=== PATIENT | female | born 1985 | race African-American/Black ===

== ENCOUNTER 2016-02-14 21:48 | Inpatient (IN) | payer BC, MEDICAID ==
[~2016-02-14] VITALS: Ht 160 cm; Wt 67.7 kg
[2016-02-15] MEDS ORDERED: MOM 30ML SUSPENSION UDC PO PRN (01:30)
[2016-02-15] MEDS ORDERED: MAALOX 30 ML SUSP *UDC PO PRN (01:30)
[2016-02-15] MEDS ORDERED: ACETAMINOPHEN TAB 650MG DOSE (2X325MG) PO PRN (01:30)
[2016-02-15] MEDS ORDERED: HALOPERIDOL 5 MG TAB PO PRN (01:30)
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
--- NOTE | 2016-02-15 02:40 | EDDOCDS ---
Physician Documentation [facility] Name: Hiren Cerda Age: 31 yrs Sex: Female : 1985 Arrival Date: 02/14/2016 Time: 21:48 Bed U5 Private MD: No Pcp Disposition: 02/14 01:16 Critical Care: Critical care not applicable. pc Disposition: 02/15/16 01:17 Hospitalization ordered by Michael Moseley for Inpatient Admission. Preliminary diagnosis are Cocaine abuse with cocaine-induced psychotic disorder, Alcohol abuse with alcohol-induced psychotic disorder. - Bed requested for Admit. - Status is Inpatient Admission. ka4 - Condition is Stable. - Problem is new. - Symptoms have improved. HPI: 02/13 22:04 This 31 yrs old Female presents to ER with complaints of Mental Health pc Eval. 22:04 The history is obtained from the patient, EMS providers, transfer records. The patient pc presents to the emergency department with suicidal ideation, depression, agitated. She presented to [facility] and was threatening suicide, was agitated and required chemical restraints. She was positive for cocaine on her drug screen but the rest of her investigations were unremarkable. She was transferred here for [facility] admission. Historical: - Allergies: no known allergies; - Home Meds: 1. none - PMHx: Depression; - PSHx: none; - The history from nurses notes was reviewed: but there are no nursing notes, or only partial notes available at the time of my charting. - Social history: Smoking status: Patient states was never smoker of tobacco. No barriers to communication noted, The patient speaks fluent Faroese. - : The pt / caregiver states he / she is not on anticoagulants. Home medication list is obtained from the patient, Unable to Verify Home Med List with the patient / caregiver. - Immunization history:: All immunizations up-to-date. - Exposure Risk Screening:: None identified. - Family history: Not pertinent. - Social history:: the patient smokes cigarettes the patient drinks alcohol, the patient uses illicit drugs, including cocaine. LEAF SORTER: 22:10 LMP 01/17/2016Feb ROS: 22:08 All systems are negative except as listed. The psychiatric and neurological components pc are also addressed in the HPI. Exam: 22:08 General Appearance: alert, anxious. pc 22:08 ENT: ear, nose and throat normal, pharynx normal. 22:08 Eyes: pupils equal, round and reactive to light, extraocular motions intact. 22:08 Neck: The exam reveals no acute abnormalities. ROM is normal and painless. No nuchal rigidity is noted.. 22:08 Respiratory: breathing is even and unlabored, breath sounds are normal. 22:08 Cardiovascular: regular pulse rate, regular heart rhythm, normal heart sounds, equal and full pulses bilaterally. 22:08 Abdomen: soft, non-tender, no organomegaly, normal bowel sounds. 22:08 Skin: skin color is normal, warm, dry. 22:08 Extremities: The extremities have a grossly normal appearance, are non-tender, without acute ROM abnormalities. 22:08 Neuro: alert, oriented to person, place and time, cranial nerves normal as tested, no motor deficits, no sensory deficits. 22:08 Psych: mood is depressed, suicidal, affect is animated. Vital Signs: 21:51 Weight 72 kg / 158.73 lbs; Height 63 in. (160.02 cm); ka4 22:07 BP 142 / 92; Pulse 96; Resp 18; Temp 99.0(T); Pulse Ox 97% on R/A; m 02/14 02:05 BP 135 / 65; Pulse 83 MON; Resp 18 S; Temp 97.8(T); Pulse Ox 95% ; Pain 0/10; ka4 02/13 21:51 Body Mass Index 28.12 (72.00 kg, 160.02 cm) ka4 MDM: 02/13 22:08 Differential diagnosis: depression, suicidal ideation, Substance Abuse. Plan: PFS eval. pc 22:32 Financial registration complete. zo 22:32 [facility] Payment Agreement was scanned into Log[employer] and attached to record. zo 02/14 01:16 The patient has been medically cleared for psychiatric evaluation, admission and/or pc transfer. [place] Safe Act reporting: Reporting to the [place] Safe Act was not completed because the patient did not display any suicidal or homicidal ideation and was not considered a risk to self or others. Data reviewed: old medical records, vital signs, nurses notes. Data reviewed: All records pertaining to the patient's transfer have been reviewed. Test interpretation: none. The patient has been re-examined and re-evaluated. The clinical presentation did not require any ED treatment or interventions. Disposition: The historical points, examination findings, and any diagnostic results supporting the provided diagnosis, were discussed with the patient or legal guardian. The need for further work-up and/or treatment in the hospital was explained. 01:22 Admit to IM: ordered. EDMS 01:22 REGULAR DIET ordered. EDMS 02:00 [facility] Legal paperwork was scanned into Loggly and attached to record. jroge Signatures: Dispatcher [employer] EDOK Jones Costello MD MD pc Newman, Jill New, RN RN jan LaFontaine, Jon, PSA PSA jl Olin, Zoeann zo Anderson, Kodie, LPN AVIONICS TEST TECHNICIAN ka4 The chart was reviewed and I authenticate all verbal orders and agree with the evaluation and treatment provided.Corrections: (The following items were deleted from the chart) 02/13 22:07 22:04 She presented to [facility] and was threatening suicide, was agitated and pc required chemical restraints. She was transferred here for Pysch admission pc 22: 22:04 She presented to [facility] and was threatening suicide, was agitated and pc required chemical restraints. She was positive for cocaine on her drug screen but the rest of her investigations were unrematrkable. She was transferred here for Pysch admission pc Attachments: 22:32 [facility] Payment Agreement zo MTDD
[2016-02-15 02:44] VITALS: BP 134/76
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
[2016-02-15 18:00] VITALS: BP 123/58
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
[2016-02-16 06:24] VITALS: BP 119/60
[2016-02-16] MEDS: CitaloPRAM (CeleXA) 20 MG TAB PO SCH (09:00)
[2016-02-16 18:00] VITALS: BP 132/78
--- NOTE | 2016-02-16 19:56 | IPNPDOC ---
[facility] Progress Note Progress Note DATE: 02/16/16 HISTORY: Patient is observed up and out of bed in room preparing to shower, is cooperative and easily engaged. Patient reports intermittent symptoms of anxiety , 5/10 depression, was Seven and homicidal ideation, denies audiovisual hallucinations, and denies urge to engage in self-injurious behavior. Patient indicates she is attending groups finding them helpful in terms of developing coping mechanisms, notes she has been utilizing prayer to help her cope with her concerns about her children and her relationship. Patient notes "I broke, and I know I need help." Patient has restarted Celexa and reiterates she has taken medication in past with good effect and no medication side effects. Patient indicates she slept well last night and denies nightmares, indicates her appetite is improving, and denies challenges with energy or concentration levels. Patient denies physical pain and indicates she feels safe on unit. VITAL SIGNS: See below. NEW TEST RESULTS: No new lab results. Lab results on admission indicate WBC 9.7 , Hgb 11.6, Hct 34.7, Plt 4334, Gluc 142, Bun 9, SCr 0.80, Na 135, K 3.9, Cl 96 , Ca 9.7, AST 39, ALT 22. RPR non reactive. TSH 5.120. Patient is asymptomatic, PA is monitoring. EKG on 02/14/16 was normal and hCG was negative on admission. CURRENT MEDICATIONS: See below. MENTAL STATUS EXAMINATION: Patient is a 31-year old female, who presents with somewhat improved personal hygiene, dressed in hospital clothing, is cooperative and less evasive, makes improved eye contact, appears stated age Behavior: No psychomotor agitation Attitude: Cooperative, calm Speech: Spontaneous, normal quantity, normal rate, normal volume Thought Content: Denies suicidal/homicidal ideation. Denies auditory/visual hallucination. Does not appear to be responding to internal stimuli. Does not appear internally preoccupied. Thought Process: Generally logical, linear, goal-oriented Mood: "I'm sad about what happened and hope it won't impact my kids." Affect: Sat, tense, brightens X 2 Cognition: Grossly intact Orientation: Awake, alert, oriented times three Insight and Judgement: Poor DIAGNOSES: Unspecified mood disorder, alcohol use disorder, cocaine use disorder ASSESSMENT: Patient appears to be adjusting to unit, has been visible in milieu and is attending groups slices minimally. Patient indicates she has begun taking Celexa she is taken in the past with good effect reported, states she remains concerned that the impact of events leading up to hospitalization on her children. Patient indicates her boyfriend visited last night and she indicates she has no safety concerns for herself or her children who remain in the care of patient's mother. Patient is brighter today, more easily engaged, indicates she is feeling somewhat more hopeful about future, denies all suicidal and homicidal ideation. Patient informs radio news writer she believes she would like to discharge to home to be with children and return to [facility] for outpatient substance abuse treatment, psychotherapy, and medication management services upon discharge. Patient adds at discharge her boyfriend has agreed to stay with his mother until she and her boyfriend can address relationship challenges. Patient is able to effectively engage in the safety planning process and verbalizes awareness of how to access supportive services on the unit if needed she was encouraged to participate in unit programming. Will continue to monitor patient's response to Celexa 20 mg by mouth every morning. MANAGEMENT PLAN: Continue Celexa 20 mg by mouth every morning. Patient is aware she has trazodone available to her as needed for sleep. Maintain safety precautions Patient to attend groups and participate in unit programming to develop coping strategies Engage patient in discharge planning process and arrange meeting with support system to evaluate safe discharge planning when appropriate Patient to follow up with PCM upon discharge Vital Signs Vital Sign - Last 24 Hours 02/16/16 02/16/16 06:24 18:00 Temp 99.3 97.6 Pulse 92 86 Resp 16 16 B/P 119/60 132/78 O2 Delivery Room Air Current Medications Current Medications Acetaminophen (Tylenol) 650 mg Q6HP PRN PO HEADACHE or DISCOMFORT; Start at 01:30; Stop 03/16/16 at 01:29 Al Hydrox/Mg Hydrox/Simethicone (Mylanta) 30 ml Q4HP PRN PO HEARTBURN/ INDIGESTION; Start 02/15/16 at 01:30; Stop 03/16/16 at 01:29 Citalopram Hydrobromide (CeleXA) 20 mg QAM PO Last administered on 02/16/16t 09: 00; Start 02/16/16 at 09:00; Stop 03/17/16 at 08:59 Haloperidol (Haldol) 5 mg Q6HP PRN PO ANXIETY/AGITATION; Start 02/15/16 at 01:30 ; Stop 03/16/16 at 01:29 Home Med (Med Rec Complete!) ASDIRECTED XX ; Start 02/15/16 at 01:45; Stop at 02:55; Status DC Lorazepam (Ativan) 1 mg Q6HP PRN PO ANXIETY/AGITATION; Start 02/15/16 at 01:30; Stop 02/22/16 at 01:29 Magnesium Hydroxide (Milk Of Magnesia) 30 ml DAILYPRN PRN PO CONSTIPATION; Start 02/15/16 at 01:30; Stop 03/16/16 at 01:29 Trazodone HCl (Desyrel) 50 mg QHSP PRN PO INSOMNIA; Start 02/15/16 at 01:30; Stop 03/16/16 at 01:29 Allergies Coded Allergies: No Known Drug Allergy (Unverified Allergy, Unknown, 02/15/16) Nereida Gusman Feb 16, 2016 19:56
[2016-02-16] MEDS: LORazepam 1 MG TAB PO PRN (19:57)
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
--- NOTE | 2016-02-17 03:40 | EDDOCDS ---
Physician Documentation [facility] Name: Hiren Cerda Age: 31 yrs Sex: Female : 1985 Arrival Date: 02/14/2016 Time: 21:48 Bed U5 Private MD: No Pcp Disposition: 02/14 01:16 Critical Care: Critical care not applicable. pc Disposition: 02/15/16 01:17 Hospitalization ordered by Michael Moseley for Inpatient Admission. Preliminary diagnosis are Cocaine abuse with cocaine-induced psychotic disorder, Alcohol abuse with alcohol-induced psychotic disorder. - Bed requested for Admit. - Status is Inpatient Admission. ka4 - Condition is Stable. - Problem is new. - Symptoms have improved. HPI: 02/13 22:04 This 31 yrs old Female presents to ER with complaints of Mental Health pc Eval. 22:04 The history is obtained from the patient, EMS providers, transfer records. The patient pc presents to the emergency department with suicidal ideation, depression, agitated. She presented to [facility] and was threatening suicide, was agitated and required chemical restraints. She was positive for cocaine on her drug screen but the rest of her investigations were unremarkable. She was transferred here for [facility] admission. Historical: - Allergies: no known allergies; - Home Meds: 1. none - PMHx: Depression; - PSHx: none; - The history from nurses notes was reviewed: but there are no nursing notes, or only partial notes available at the time of my charting. - Social history: Smoking status: Patient states was never smoker of tobacco. No barriers to communication noted, The patient speaks fluent Gambian. - : The pt / caregiver states he / she is not on anticoagulants. Home medication list is obtained from the patient, Unable to Verify Home Med List with the patient / caregiver. - Immunization history:: All immunizations up-to-date. - Exposure Risk Screening:: None identified. - Family history: Not pertinent. - Social history:: the patient smokes cigarettes the patient drinks alcohol, the patient uses illicit drugs, including cocaine. MANAGER MANAGEMENT: 22:10 LMP 01/17/2016Feb ROS: 22:08 All systems are negative except as listed. The psychiatric and neurological components pc are also addressed in the HPI. Exam: 22:08 General Appearance: alert, anxious. pc 22:08 ENT: ear, nose and throat normal, pharynx normal. 22:08 Eyes: pupils equal, round and reactive to light, extraocular motions intact. 22:08 Neck: The exam reveals no acute abnormalities. ROM is normal and painless. No nuchal rigidity is noted.. 22:08 Respiratory: breathing is even and unlabored, breath sounds are normal. 22:08 Cardiovascular: regular pulse rate, regular heart rhythm, normal heart sounds, equal and full pulses bilaterally. 22:08 Abdomen: soft, non-tender, no organomegaly, normal bowel sounds. 22:08 Skin: skin color is normal, warm, dry. 22:08 Extremities: The extremities have a grossly normal appearance, are non-tender, without acute ROM abnormalities. 22:08 Neuro: alert, oriented to person, place and time, cranial nerves normal as tested, no motor deficits, no sensory deficits. 22:08 Psych: mood is depressed, suicidal, affect is animated. Vital Signs: 21:51 Weight 72 kg / 158.73 lbs; Height 63 in. (160.02 cm); ka4 22:07 BP 142 / 92; Pulse 96; Resp 18; Temp 99.0(T); Pulse Ox 97% on R/A; m 02/14 02:05 BP 135 / 65; Pulse 83 MON; Resp 18 S; Temp 97.8(T); Pulse Ox 95% ; Pain 0/10; ka4 02/13 21:51 Body Mass Index 28.12 (72.00 kg, 160.02 cm) ka4 MDM: 02/13 22:08 Differential diagnosis: depression, suicidal ideation, Substance Abuse. Plan: PFS eval. pc 22:32 Financial registration complete. zo 22:32 [facility] Payment Agreement was scanned into [employer] and attached to record. zo 02/14 01:16 The patient has been medically cleared for psychiatric evaluation, admission and/or pc transfer. [place] Safe Act reporting: Reporting to the [place] Safe Act was not completed because the patient did not display any suicidal or homicidal ideation and was not considered a risk to self or others. Data reviewed: old medical records, vital signs, nurses notes. Data reviewed: All records pertaining to the patient's transfer have been reviewed. Test interpretation: none. The patient has been re-examined and re-evaluated. The clinical presentation did not require any ED treatment or interventions. Disposition: The historical points, examination findings, and any diagnostic results supporting the provided diagnosis, were discussed with the patient or legal guardian. The need for further work-up and/or treatment in the hospital was explained. 01:22 Admit to IM: ordered. EDMS 01:22 REGULAR DIET ordered. EDMS 02:00 [facility] Legal paperwork was scanned into [employer] and attached to record. jl 09:10 PCR was scanned into [employer] and attached to record. gb Signatures: Dispatcher [employer] EDNJ Jones Costello MD MD pc Newman, Jill New, RN RN Kahlil Loo, PSA PSA jl Stefania Stovall, Reg Reg gb Rufino, Joceline Smart,PRINTED CIRCUIT BOARDS SOLDER LEVELER PRINTED CIRCUIT BOARDS SOLDER LEVELER ka4 The chart was reviewed and I authenticate all verbal orders and agree with the evaluation and treatment provided.Corrections: (The following items were deleted from the chart) 02/13 22:07 22:04 She presented to [facility] and was threatening suicide, was agitated and pc required chemical restraints. She was transferred here for Pysch admission pc 22: 22:04 She presented to [facility] and was threatening suicide, was agitated and pc required chemical restraints. She was positive for cocaine on her drug screen but the rest of her investigations were unrematrkable. She was transferred here for Pysch admission pc Attachments: 22:32 [facility] Payment Agreement zo Chart Complete MTDD
--- NOTE | 2016-02-17 03:40 | EDDOCDS ---
Physician Documentation [facility] Name: Hiren Cerda Age: 31 yrs Sex: Female : 1985 Arrival Date: 02/14/2016 Time: 21:48 Bed U5 Private MD: No Pcp Disposition: 02/14 01:16 Critical Care: Critical care not applicable. pc Disposition: 02/15/16 01:17 Hospitalization ordered by Michael Moseley for Inpatient Admission. Preliminary diagnosis are Cocaine abuse with cocaine-induced psychotic disorder, Alcohol abuse with alcohol-induced psychotic disorder. - Bed requested for Admit. - Status is Inpatient Admission. ka4 - Condition is Stable. - Problem is new. - Symptoms have improved. HPI: 02/13 22:04 This 31 yrs old Female presents to ER with complaints of Mental Health pc Eval. 22:04 The history is obtained from the patient, EMS providers, transfer records. The patient pc presents to the emergency department with suicidal ideation, depression, agitated. She presented to [facility] and was threatening suicide, was agitated and required chemical restraints. She was positive for cocaine on her drug screen but the rest of her investigations were unremarkable. She was transferred here for [facility] admission. Historical: - Allergies: no known allergies; - Home Meds: 1. none - PMHx: Depression; - PSHx: none; - The history from nurses notes was reviewed: but there are no nursing notes, or only partial notes available at the time of my charting. - Social history: Smoking status: Patient states was never smoker of tobacco. No barriers to communication noted, The patient speaks fluent [place]. - : The pt / caregiver states he / she is not on anticoagulants. Home medication list is obtained from the patient, Unable to Verify Home Med List with the patient / caregiver. - Immunization history:: All immunizations up-to-date. - Exposure Risk Screening:: None identified. - Family history: Not pertinent. - Social history:: the patient smokes cigarettes the patient drinks alcohol, the patient uses illicit drugs, including cocaine. RACING SECRETARY: 22:10 LMP 01/17/2016Feb ROS: 22:08 All systems are negative except as listed. The psychiatric and neurological components pc are also addressed in the HPI. Exam: 22:08 General Appearance: alert, anxious. pc 22:08 ENT: ear, nose and throat normal, pharynx normal. 22:08 Eyes: pupils equal, round and reactive to light, extraocular motions intact. 22:08 Neck: The exam reveals no acute abnormalities. ROM is normal and painless. No nuchal rigidity is noted.. 22:08 Respiratory: breathing is even and unlabored, breath sounds are normal. 22:08 Cardiovascular: regular pulse rate, regular heart rhythm, normal heart sounds, equal and full pulses bilaterally. 22:08 Abdomen: soft, non-tender, no organomegaly, normal bowel sounds. 22:08 Skin: skin color is normal, warm, dry. 22:08 Extremities: The extremities have a grossly normal appearance, are non-tender, without acute ROM abnormalities. 22:08 Neuro: alert, oriented to person, place and time, cranial nerves normal as tested, no motor deficits, no sensory deficits. 22:08 Psych: mood is depressed, suicidal, affect is animated. Vital Signs: 21:51 Weight 72 kg / 158.73 lbs; Height 63 in. (160.02 cm); ka4 22:07 BP 142 / 92; Pulse 96; Resp 18; Temp 99.0(T); Pulse Ox 97% on R/A; m 02/14 02:05 BP 135 / 65; Pulse 83 MON; Resp 18 S; Temp 97.8(T); Pulse Ox 95% ; Pain 0/10; ka4 02/13 21:51 Body Mass Index 28.12 (72.00 kg, 160.02 cm) ka4 MDM: 02/13 22:08 Differential diagnosis: depression, suicidal ideation, Substance Abuse. Plan: PFS eval. pc 22:32 Financial registration complete. zo 22:32 [facility] Payment Agreement was scanned into test company and attached to record. zo 02/14 01:16 The patient has been medically cleared for psychiatric evaluation, admission and/or pc transfer. [place]: Reporting to the [place] was not completed because the patient did not display any suicidal or homicidal ideation and was not considered a risk to self or others. Data reviewed: old medical records, vital signs, nurses notes. Data reviewed: All records pertaining to the patient's transfer have been reviewed. Test interpretation: none. The patient has been re-examined and re-evaluated. The clinical presentation did not require any ED treatment or interventions. Disposition: The historical points, examination findings, and any diagnostic results supporting the provided diagnosis, were discussed with the patient or legal guardian. The need for further work-up and/or treatment in the hospital was explained. 01:22 Admit to IM: ordered. EDMS 01:22 REGULAR DIET ordered. EDMS 02:00 [facility] Legal paperwork was scanned into test company and attached to record. jl 09:10 PCR was scanned into [employer] and attached to record. gb Signatures: Dispatcher [employer] EDNC Jones Costello MD MD pc Newman, Jill New, RN RN Kahlil Loo, PSA PSA jl Stefania Stovall, Reg Reg gb Rufino, Joceline Smart,BODY SERVICE TEAM MEMBER BODY SERVICE TEAM MEMBER ka4 The chart was reviewed and I authenticate all verbal orders and agree with the evaluation and treatment provided.Corrections: (The following items were deleted from the chart) 02/13 22:07 22:04 She presented to [facility] and was threatening suicide, was agitated and pc required chemical restraints. She was transferred here for Pysch admission pc 22: 22:04 She presented to [facility] and was threatening suicide, was agitated and pc required chemical restraints. She was positive for cocaine on her drug screen but the rest of her investigations were unrematrkable. She was transferred here for Pysch admission pc Attachments: 22:32 [facility] Payment Agreement zo Chart Complete MTDD
[2016-02-17 06:27] VITALS: BP 123/59
[2016-02-17 06:28] VITALS: BP 123/59
[2016-02-17] MEDS: CitaloPRAM (CeleXA) 20 MG TAB PO SCH (08:10)
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
[2016-02-17 18:00] VITALS: BP 140/92
[2016-02-18] MEDS: LORazepam 1 MG TAB PO PRN (03:17)
[2016-02-18 06:00] VITALS: BP 121/69
[2016-02-18] MEDS: CitaloPRAM (CeleXA) 20 MG TAB PO SCH (08:09)
[2016-02-18 12:27] LABS: BASO % 0.5 % (0.0-1.0); EOS # 0.1 K/mm3 (0.0-0.50); EOS % 1.7 % (0.0-3.0); LARGE UNSTAINED CELL # 0.2 K/mm3 (0.0-0.4); LARGE UNSTAINED CELL % 2.7 % (0.0-4.0); LYMPH # 1.8 K/mm3 (1.5-4.5); LYMPH % 21.2 % (24.0-44.0); MEAN CORPUSCULAR HEMOGLOBIN 25.4 pg (27.0-33.0); MEAN CORPUSCULAR VOLUME 79.4 fl (80.0-96.0); MONO # 0.6 K/mm3 (0.0-0.8); MONO % 6.9 % (0.0-5.0); NEUTROPHILS # 5.6 K/mm3 (1.8-7.7); NEUTROPHILS % 66.9 % (36.0-66.0); PLATELET COUNT, AUTOMATED 457 k/mm3 (150-450); RED CELL DISTRIBUTION WIDTH 14.6 % (11.5-14.5); WHITE BLOOD COUNT 8.4 K/mm3 (4.0-10.0)
[2016-02-18 12:28] LABS: ANION GAP 10 MEQ/L (8-16); BLOOD UREA NITROGEN 10 MG/DL (7-18); CALCIUM LEVEL 9.2 MG/DL (8.5-10.1); CARBON DIOXIDE LEVEL 26 MEQ/L (21-32); CHLORIDE LEVEL 102 MEQ/L (98-107); CREATININE FOR GFR 0.87 MG/DL (0.55-1.02); GLOMERULAR FILTRATION RATE > 60.0 (>60); GLUCOSE, FASTING 97 MG/DL (70-105); POTASSIUM SERUM 4.4 MEQ/L (3.5-5.1); SODIUM LEVEL 138 MEQ/L (136-145)
[2016-02-18] MEDS ORDERED: hydrOXYzine 50 MG TAB PO PRN (13:00)
--- NOTE | 2016-02-18 13:15 | IPNPDOC ---
Assessment/Plan Date Seen The patient was seen on 02/18/16. Problems Problems: (1) Diarrhea Status: Acute Problem Text: * possible viral illness * rest * fluids * bland diet * CBC/CMP * GI panel * Monitor Plan / VTE VTE Prophylaxis Ordered?: No (ambulatory) Subjective Review of Systems CC/HPI The patient is a 31-year-old female admitted with a reason for visit of Depression & Cocaine Use. Events since last encounter Pt with Nausea, dec po intake and diarrhea x 3 yesterday x 1 today. feels fatigued. ENT: Denies: Dysphagia, Ear Pain, Head Aches Pulmonary: Denies: Cough, Dyspnea Cardiovascular: Denies: Chest Pain, Lt Headedness, Orthopnea, Palpitations, Paroxysmal Noc. Dyspnea Gastrointestinal: Reports: Diarrhea, Nausea, Denies: Abdominal Pain, Constipation, Hematochezia, Melena, Other Symptoms, Vomiting Genitourinary: Denies: Dysuria, Frequency, Incontinence, Retention Objective Physical Examination General Exam: Positive: Alert Eye Exam: Positive: PERRLA Chest Exam: Positive: Clear to auscultation, Normal air movement Heart Exam: Positive: Normal S1, Normal S2, Rate Normal, Regular Rhythm, Negative: Murmurs, Rubs Abdomen Exam: Positive: Normal bowel sounds, Soft, Negative: BS Hyperactive, BS Hypoactive, Hepatospenomegaly, Hernia, Mass, Other, Tenderness Skin Exam: Positive: Nl turgor and temperature Vital Signs/I&O Vital Signs Date Time Temp Pulse Resp B/P Pulse Ox O2 Delivery O2 Flow Rate FiO2 02/18/16 06:00 98.9 108 18 121/69 02/17/16 18:00 Room Air 02/15/16 02:44 97 Laboratory Data Labs 24H Laboratory Tests 2 02/18/16 06:31: Free Thyroxine Index 2.9, Thyroid Stimulating Hormone (TSH) 1.470, Thyroxine (T4 ) 9.0, Triiodothyronine (T3) Uptake 32 02/18/16 11:08: Anion Gap 10, White Blood Count 8.4, Red Blood Count 4.70, Hemoglobin 12.0, Hematocrit 37.3, Mean Corpuscular Volume 79.4L, Mean Corpuscular Hemoglobin 25.4L, Mean Corpuscular Hemoglobin Concent 32.0, Red Cell Distribution Width 14.6H, Platelet Count 457H, Neutrophils (%) (Auto) 66.9H, Lymphocytes (%) (Auto ) 21.2L, Monocytes (%) (Auto) 6.9H, Eosinophils (%) (Auto) 1.7, Basophils (%) ( Auto) 0.5, Neutrophils # (Auto) 5.6, Lymphocytes # (Auto) 1.8, Monocytes # (Auto ) 0.6, Eosinophils # (Auto) 0.1, Basophils # (Auto) 0.0, Blood Urea Nitrogen 10 , Creatinine 0.87, Sodium Level 138, Potassium Level 4.4, Chloride Level 102, Carbon Dioxide Level 26, Calcium Level 9.2, Glomerular Filtration Rate > 60.0, Large Unclassified Cells # 0.2, Large Unclassified Cells % 2.7 CBC/BMP Laboratory Tests 02/18/16 11:08 Calcium Level 9.2, Red Blood Count 4.70, Mean Corpuscular Volume 79.4 L, Mean Corpuscular Hemoglobin 25.4 L, Mean Corpuscular Hemoglobin Concent 32.0, Red Cell Distribution Width 14.6 H, Neutrophils (%) (Auto) 66.9 H, Lymphocytes (%) ( Auto) 21.2 L, Monocytes (%) (Auto) 6.9 H, Eosinophils (%) (Auto) 1.7, Basophils (%) (Auto) 0.5, Neutrophils # (Auto) 5.6, Lymphocytes # (Auto) 1.8, Monocytes # (Auto) 0.6, Eosinophils # (Auto) 0.1, Basophils # (Auto) 0.0 Vicky Guevara Feb 18, 2016 13:15
[2016-02-18 18:17] VITALS: BP 140/91
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
[2016-02-18] MEDS: traZODone 50 MG TAB PO PRN (22:05)
[2016-02-19 06:42] VITALS: BP 121/69
[2016-02-19] MEDS: CitaloPRAM (CeleXA) 20 MG TAB PO SCH (08:03)
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
[2016-02-19 18:00] VITALS: BP 127/73
[2016-02-19] MEDS: traZODone 50 MG TAB PO PRN (23:34)
[2016-02-20 06:37] VITALS: BP 112/72
[2016-02-20] MEDS: CitaloPRAM (CeleXA) 20 MG TAB PO SCH (08:04)
[2016-02-20 18:23] VITALS: BP 113/76
[2016-02-20] MEDS: traZODone 50 MG TAB PO PRN (22:23)
[2016-02-21 05:54] VITALS: BP 107/53
[2016-02-21] MEDS: CitaloPRAM (CeleXA) 20 MG TAB PO SCH (08:24)
[2016-02-21 18:20] VITALS: BP 130/71
--- NOTE | 2016-02-21 19:57 | IPNPDOC ---
[facility] Progress Note Progress Note DATE: 02/21/16 HISTORY: Patient is observed engaged with peers, watching TV. Pt. denies suicidal and homicidal ideation, denies audiovisual hallucinations and denies urge to engage in self-injurious behavior. Patient has attended groups this morning and continues to find them helpful. Patient continues to take Celexa with good effect reported and patient denies medication side effects. Patient indicates challenges with sleep have improved, feels rested today. Patient denies challenges with concentration. Pt. states she felt overwhelmed and " tired of everything" and feels she has "learned a lot here". VITAL SIGNS: See below. NEW TEST RESULTS: No new results. Lab results on admission indicate WBC 9.7, Hgb 11.6, Hct 34.7, Plt 4334, Gluc 142, Bun 9, SCr 0.80, Na 135, K 3.9, Cl 96, Ca 9.7, AST 39, ALT 22. RPR non reactive. TSH 5.120. Patient is asymptomatic, PA is monitoring. EKG on 02/14/16 was normal and hCG was negative on admission. CURRENT MEDICATIONS: See below. MENTAL STATUS EXAMINATION: Patient is a 31-year old female, who presents with good personal hygiene, dressed in personal clothing, is cooperative and pleasant , makes good eye contact, appears stated age. Of note, Pt. states her father was killed in a hit and run yesterday. Pt. would like to be discharged to be with her family at this time. Pt. is working through her feelings of guilt as she has not seen her father in over 2 years. Behavior: No psychomotor agitation Attitude: Cooperative, calm Speech: Spontaneous, normal quantity, normal rate, normal volume, crying at times Thought Content: Denies suicidal/homicidal ideation. Denies auditory/visual hallucination. Does not appear to be responding to internal stimuli. Does not appear internally preoccupied. Thought Process: Logical, linear, goal-oriented Mood: "I'm sad due to my dad's ", Pt. then states she has felt better with each passing day. Affect: Remains sad but is bright and focused, some tearfulness today when discussing dad. Cognition: Grossly intact Orientation: Awake, alert, oriented times three Insight and Judgement: Fair to good. DIAGNOSES: Unspecified mood disorder, alcohol use disorder, cocaine use disorder ASSESSMENT: Patient has been ambulatory around the unit, has been participating in groups and activities as well. Patient continues to take Celexa and indicates medication is helping to improve mood. She denies medication side effects and mood lability. Patient denies suicidal and homicidal thinking. Patient remains sad due to father's but reports some improvement in symptoms. Patient reiterates desire to discharge to [facility] located in [facility], verbalizes agreement with discharge plan early next week. Patient reiterates plan is for her to return to her home where she lives with her mother and her children, and for her boyfriend to reside with his mother. Will continue to evaluate patient' s safety and discharge readiness and will monitor patient's response to Celexa 20 mg po q am. MANAGEMENT PLAN: Continue Celexa 20 mg by mouth every morning. Patient is aware she has trazodone available to her as needed for sleep. Maintain safety precautions Patient to attend groups and participate in unit programming to develop coping strategies Engage patient in discharge planning process and arrange meeting with support system to evaluate safe discharge planning when appropriate Patient to follow up with PCM upon discharge Vital Signs Vital Sign - Last 24 Hours 02/21/16 02/21/16 05:54 18:20 Temp 97.3 98.3 Pulse 75 90 Resp 18 16 B/P 107/53 130/71 Current Medications Current Medications Acetaminophen (Tylenol) 650 mg Q6HP PRN PO HEADACHE or DISCOMFORT; Start at 01:30; Stop 03/16/16 at 01:29 Al Hydrox/Mg Hydrox/Simethicone (Mylanta) 30 ml Q4HP PRN PO HEARTBURN/ INDIGESTION Last administered on 02/18/16 02:46; Start 02/15/16 at 01:30; Stop at 01:29 Citalopram Hydrobromide (CeleXA) 20 mg QAM PO Last administered on 02/21/16 08: 24; Start 02/16/16 at 09:00; Stop 03/17/16 at 08:59 Haloperidol (Haldol) 5 mg Q6HP PRN PO ANXIETY/AGITATION; Start 02/15/16 at 01:30 ; Stop 03/16/16 at 01:29 Home Med (Med Rec Complete!) ASDIRECTED XX ; Start 02/15/16 at 01:45; Stop at 02:55; Status DC Hydroxyzine HCl (Atarax) 50 mg Q6HP PRN PO ANXIETY; Start 02/18/16 at 13:00; Stop 03/19/16 at 12:59 Lorazepam (Ativan) 1 mg Q6HP PRN PO ANXIETY/AGITATION Last administered on 03:17; Start 02/15/16 at 01:30; Stop 02/22/16 at 01:29 Magnesium Hydroxide (Milk Of Magnesia) 30 ml DAILYPRN PRN PO CONSTIPATION; Start 02/15/16 at 01:30; Stop 03/16/16 at 01:29 Trazodone HCl (Desyrel) 50 mg QHSP PRN PO INSOMNIA Last administered on 22:23; Start 02/15/16 at 01:30; Stop 03/16/16 at 01:29 Allergies Coded Allergies: No Known Drug Allergy (Unverified Allergy, Unknown, 02/15/16) JOHN TERRELL NP Feb 21, 2016 19:57 SVETA AMARAL MD Feb 22, 2016 14:19
[2016-02-21] MEDS: traZODone 50 MG TAB PO PRN (22:28)
[2016-02-22 06:03] VITALS: BP 124/61
[2016-02-22] MEDS: CitaloPRAM (CeleXA) 20 MG TAB PO SCH (08:12)
[2016-02-22] MEDS ORDERED: CELE20TA PO ×2 (08:48→09:02)
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
== END 2016-02-22 15:10 | disposition home or self-care (01) | DRG 753 ==
LOC: M ED 21:48 → M PSY 02-15 02:44
PROVIDERS: ADMIT Psychiatry & Neurology Psychiatry; ATTEND Psychiatry & Neurology Psychiatry
DX: F39 Unspecified mood [affective] disorder (principal); F14.10 Cocaine abuse, uncomplicated; F10.10 Alcohol abuse, uncomplicated; Z63.0 Problems in relationship with spouse or partner; F17.210 Nicotine dependence, cigarettes, uncomplicated; R19.7 Diarrhea, unspecified; Z91.5 Personal history of self-harm